=== PATIENT | female | born 1990 | race Caucasian/White ===

== ENCOUNTER 2017-01-24 08:50 | Emergency (ER) | payer OTHER ==
[~2017-01-24 08:50] MED LIST: BENTYL10 M1 PO; NO MEDICATIONS; PHENERGAN25 M1 PO; ZOFRAN ODT4 MG PO; ZOFRAN ODT4 MG SL; ZOFRAN PO
== END 2017-01-24 09:29 | disposition home or self-care (01) ==
LOC: SED 08:50
DX: J02.9 Acute pharyngitis, unspecified (principal)
CPT/HCPCS: 87651; 99284